=== PATIENT | male | born 2005 | race Caucasian/White ===

== ENCOUNTER 2023-05-19 05:12 | Emergency (ER) | payer MEDICAID ==
[~2023-05-19] VITALS: Ht 172.7 cm; Wt 70.0 kg
[2023-05-19 05:33] VITALS: BP 126/69; PULSE 68; RESP 18; TEMP 98.7; O2SAT 100
[2023-05-19] MEDS ORDERED: LIDOCAINE HCL/PF 1% 10 MG/ML 5ML VIAL INFIL ONE (08:45)
[2023-05-19] MEDS ORDERED: TETANUS, DIPHTHERIA, PERTUSSIS VAC/PF 0.5ML (>10YR OLD) IM ONE (08:45)
[2023-05-19] MEDS ORDERED: ACET-2708 MT (09:14)
== END 2023-05-19 10:25 | disposition home or self-care (01) ==
LOC: ER 05:12
DX: S91.205A Unspecified open wound of left lesser toe(s) with damage to nail, initial encounter (principal); X58.XXXA Exposure to other specified factors, initial encounter; Y93.89 Activity, other specified; Y92.89 Other specified places as the place of occurrence of the external cause; Y99.8 Other external cause status
CPT/HCPCS: 99284; 73660; 90715; 11730; 90471; J3490